=== PATIENT | male | born 1990 | race Hispanic/Latino ===

== ENCOUNTER 2021-10-22 14:44 | Emergency (ER) | payer SELFPAY ==
[~2021-10-22] VITALS: Ht 185.4 cm; Wt 91.0 kg
[2021-10-22 15:52] VITALS: BP 133/86
[2021-10-22 16:00] VITALS: BP 125/107
[2021-10-22 16:16] VITALS: BP 138/84
[2021-10-22 16:30] VITALS: BP 131/100
[2021-10-22] MEDS ORDERED: HYDROCO/APAP1 TA9 PO (16:34)
[2021-10-22] MEDS ORDERED: MELOXICAM7.5 MG PO (16:34)
[2021-10-22 16:45] VITALS: BP 128/84
[2021-10-22 17:29] VITALS: BP 128/84
== END 2021-10-22 17:44 | disposition home or self-care (01) | DRG 563 ==
LOC: ED 14:44
PROC: 2W3DX1Z Immobilization of Left Lower Arm using Splint (ICD-10-PCS; principal; 2021-10-22)
DX: S52.502A Unspecified fracture of the lower end of left radius, initial encounter for closed fracture (principal); W11.XXXA Fall on and from ladder, initial encounter